=== PATIENT | female | born 1955 ===

== ENCOUNTER 2017-08-08 07:55 | Outpatient (CLI) | payer OTHER | END 2017-08-08 08:01 | disposition home or self-care (01) | LOC: SONOGRAMA 07:55 | DX: E04.1 Nontoxic single thyroid nodule (principal) ==

== ENCOUNTER 2023-07-11 14:39 | Outpatient (CLI) | payer OTHER | END 2023-07-11 14:47 | disposition home or self-care (01) | LOC: SONOGRAMA 14:39 | PROVIDERS: ATTEND Pathology Anatomic Pathology & Clinical Pathology | DX: D34 Benign neoplasm of thyroid gland (principal); E07.89 Other specified disorders of thyroid; E03.9 Hypothyroidism, unspecified ==